=== PATIENT | female | born 1940 | race Two or more races ===

== ENCOUNTER 2019-01-19 12:37 | Outpatient (CLI) | payer OTHER | END 2019-01-19 13:39 | disposition home or self-care (01) | LOC: RAD 12:37 | DX: S22.082 Unstable burst fracture of T11-T12 vertebra (principal); M54.89 Other dorsalgia; M80.80XG Other osteoporosis with current pathological fracture, unspecified site, subsequent encounter for fracture with delayed healing; E03.8 Other specified hypothyroidism; J45.998 Other asthma; E78.2 Mixed hyperlipidemia; M41.25 Other idiopathic scoliosis, thoracolumbar region; M41.56 Other secondary scoliosis, lumbar region ==